=== PATIENT | female | born 1970 | race Caucasian/White ===

== ENCOUNTER 2021-07-18 09:53 | Day surgery (SDC) | payer BC ==
[2021-07-13 12:05] LABS: Hemoglobin 14.1 g/dL (12.0-15.5); Mean Corpuscular HGB CONC 34.6 g/dL (32.0-36.0); Mean Corpuscular Hemoglobin 30.4 pg (27.0-33.0); Mean Corpuscular Volume 87.9 fl (81.6-98.3); Mean Platelet Volume 11.1 fl (7.4-10.4); Platelet Count 212 10x3/uL (150-450); RBC Distribution Width 13.3 % (11.5-14.5); Red Blood Cell (RBC) Count 4.64 10x6/uL (3.90-5.03); White Blood Cell (WBC) Count 8.4 10x3/uL (3.5-10.5)
[2021-07-13 12:49] LABS: BHCG - Serum Negative (NEGATIVE); Pregs Control Background? CLEAR/WHITE (CLR/WHITE); Pregs Control Bar Appear? YES (CONTROL BAR)
[2021-07-14 16:03] LABS: SARS-CoV-2 PCR by NAA Not Detected (NotDetected)
[2021-07-16 15:13] VITALS: BMI 36.0
[2021-07-18] MEDS ORDERED: Gabapentin 300 MG CAP ONE (10:19)
[2021-07-18] MEDS ORDERED: CeleCOXIB 100 MG CAP ONE (10:20)
[2021-07-18] MEDS ORDERED: Famotidine/PF 20 mg/2ml Vial ONE (10:20)
[2021-07-18] MEDS ORDERED: Lidocaine 1% MPF 2 ML VIAL ONE (10:20)
[2021-07-18] MEDS ORDERED: Midazolam HCl 2 mg/2 ml Vial ONE ×2 (11:49→12:37)
[2021-07-18] MEDS ORDERED: PROPOFOL 20 ML ONE (12:36)
[2021-07-18] MEDS ORDERED: Ondansetron PF 4 MG/2 ML Vial ONE (12:37)
[2021-07-18] MEDS ORDERED: Glycopyrrolate 0.2 MG/ML 5 ML SYRINGE ONE (12:37)
[2021-07-18] MEDS ORDERED: Dexamethasone 4 mg/ml Vial ONE (12:37)
[2021-07-18] MEDS ORDERED: Rocuronium Bromide 10 MG/ML (10ML VIAL) ONE (12:37)
[2021-07-18] MEDS ORDERED: Lidocaine 1% PF 5 ML VIAL ONE ×2 (12:37)
[2021-07-18] MEDS ORDERED: Ketorolac Tromethamine 30 MG/ML VIAL ONE (12:37)
[2021-07-18] MEDS ORDERED: Fentanyl 250 MCG/5 ML VIAL ONE (12:37)
[2021-07-18] MEDS ORDERED: Bupivacaine PF 0.5% 30 ML VIAL ONE (12:40)
[2021-07-18] MEDS ORDERED: EPINEPHrine 1 MG/ML AMP ONE (12:40)
[2021-07-18] MEDS ORDERED: ceFAZolin 2 GM/Dextrose 50 ML IVPB ONE (12:40)
[2021-07-18] MEDS ORDERED: PHENYLEPHRINE-NS 100 MCG/ML 10 ML SYRINGE ONE (13:38)
[2021-07-18] MEDS ORDERED: Fentanyl 100 MCG/2 ML VIAL ONE (15:17)
== END 2021-07-18 17:20 | disposition home or self-care (01) ==
LOC: CSHSDC 09:53
PROVIDERS: ATTEND Obstetrics & Gynecology
PROC: 0UT94ZZ Resection of Uterus, Percutaneous Endoscopic Approach (ICD-10-PCS; principal; 2021-07-18)
PROC: 0UT24ZZ Resection of Bilateral Ovaries, Percutaneous Endoscopic Approach (ICD-10-PCS; principal; 2021-07-18)
PROC: 0UT74ZZ Resection of Bilateral Fallopian Tubes, Percutaneous Endoscopic Approach (ICD-10-PCS; principal; 2021-07-18)
PROC: 8E0W8CZ Robotic Assisted Procedure of Trunk Region, Via Natural or Artificial Opening Endoscopic (ICD-10-PCS; principal; 2021-07-18)
DX: Z40.02 Encounter for prophylactic removal of ovary(s) (principal); N80.0 Endometriosis of uterus; N83.292 Other ovarian cyst, left side; N83.291 Other ovarian cyst, right side; N83.8 Other noninflammatory disorders of ovary, fallopian tube and broad ligament; E78.5 Hyperlipidemia, unspecified; E03.9 Hypothyroidism, unspecified; Z80.41 Family history of malignant neoplasm of ovary; Z79.890 Hormone replacement therapy; Z79.899 Other long term (current) drug therapy; Z91.040 Latex allergy status; Z20.822 Contact with and (suspected) exposure to COVID-19
CPT/HCPCS: 84703; 85027; 86850; 86900; 86901; 88307; J0171; J0690; J1100; J1885; J2250; J2405; J2704; J3010; S0020; S0028; U0003; U0005